=== PATIENT | male | born 1975 | race Caucasian/White ===

== ENCOUNTER 2024-09-24 00:49 | Day surgery (SDC) | payer OTHER, SELFPAY ==
[2024-09-16 09:29] VITALS: BMI 20.6
[2024-09-24 09:33] VITALS: BP 118/82; PULSE 62; RESP 18; TEMP 36; O2SAT 98
[2024-09-24] MEDS: LACTATED RINGERS 1,000 ML 150 ML IV CONT (09:45)
--- NOTE | 2024-09-24 10:05 | P.PNAN_ITS ---
Anes - Initial Pre Proc Eval Procedure: Operation Date: 09/24/24 10:30 Proposed Procedures p Screening Colonoscopy - Juan Gil DO Date/Time: 09/24/24 10:05 Surgeon: Juan Gil DO Pre Op Diagnosis: Screening for malignant neoplasm of colon Patient Data Age: 49 Gender: M Height: 1.73 m Weight: 59.2 kg Last Vital Signs Temp 36.0 C L 09/24/24 09:33 Pulse 62 09/24/24 09:33 Resp 18 09/24/24 09:33 BP 118/82 09/24/24 09:33 Pulse Ox 98 09/24/24 09:33 O2 Del Method Room Air 09/24/24 09:33 Allergies Allergy/AdvReac Type Severity Reaction Status Date / Time Tetanus Vaccines and Toxoid Allergy Unknown Unknown Verified 09/24/24 09:31 Horse Serum Proteins Allergy Unknown REACTION Uncoded 09/24/24 09:31 WHEN YOUNG, UNSURE OF REACTION Home Medications Medication Instructions Recorded Confirmed Type lisinopril 2.5 mg tablet 2.5 mg PO DAILY #90 tabs 05/19/24 09/24/24 Rx omeprazole 40 mg capsule,delayed See Rx Instructions .Route 08/22/24 09/24/24 Rx release .COMPLEX #90 caps ascorbic acid (vitamin C) 500 mg 500 mg PO DAILY 09/16/24 09/24/24 History tablet Patient hx anesthesia problems: none Family hx anesthesia problems: none Results Review: All pre-operative results and documents have been reviewed as part of the pre- operative evaluation. [facility] Past Medical History Medical History Acute non-recurrent sinusitis Hiatal hernia with GERD and esophagitis Pain in right ankle and joints of right foot Primary hypertension Family History Family History Sibling Family history of bipolar disorder Mother Family history of malignant neoplasm of ovary Father Brain cancer Other Diabetes mellitus Social History Social History Smoking status: Never smoker Second hand tobacco smoke exposure: No Alcohol intake: never Substance use: never Substance use type: does not use Lack of Transportation: No Lack of Food: Never True Current Housing: I Have Housing Concerned About Future Housing: No Difficulty Paying Gas/Electric Bills: No Difficulty Paying for Meds: No Currently Unemployed: No Education: Decline to Answer Difficulty w/ Childcare or Family Care: No Living arrangements: with family Gender identity (if verbalized by the patient): Male Spiritual care concerns: No Agree to blood products: Yes Anes - Eval Final PreProcedure Day of Procedure 09/24/24 10:05 Patient weight: normal Heart: regular rate and rhythm Lungs: clear to auscultation Airway: Mallampati scale class 1 Neurological: alert and oriented Last oral intake: >/= 8 hours ASA classification: II Emergent: no Anesthetic plan: proceed Anesthesia type and monitoring: general GIVS and standard monitoring Results Review: All pre-operative results and documents have been reviewed as part of the pre- operative evaluation. Informed Consent: The patient's anesthetic plan and its attendant risks and benefits were discussed with the patient/family/POA. Questions were solicited and answers provided to the satisfaction of the patient/family/POA.
--- NOTE | 2024-09-24 10:29 | P.HP_ITS ---
H&P: HPI History of Present Illness Date/Time: 09/24/24 10:29 Chief Complaint: screening for colorectal cancer Narrative: this is a 49-year-old man who presents for his 1st colonoscopy. He denies any hematochezia or melena. He denies family history colon cancer. Review of Systems Review of Systems: All systems reviewed & are unremarkable except as noted in HPI and below Constitutional: Constitutional: Denies chills, Denies fever(s), Denies headache(s) and Denies weight loss Eyes: Eyes: Denies change in vision ENT: Denies dizziness, Denies headache(s), Denies neck mass and Denies throat swelling Cardiovascular: Cardiovascular: Denies chest pain, Denies lightheadedness and Denies dyspnea Respiratory: Respiratory: Denies cough, Denies dyspnea and Denies wheezing Gastrointestinal: Gastrointestinal: Denies abdominal pain, Denies change in bowel habits, Denies nausea and Denies vomiting Genitourinary: Genitourinary: Denies hematuria and Denies dysuria Musculoskeletal: Musculoskeletal: Reports as per HPI Integumentary/Breasts: Skin/Breast: Reports as per HPI Neurologic: Denies dizziness and Denies headache(s) Allergic/Immunologic: Allergic/Immunologic: Denies throat swelling and Denies wheezing PMFSH Past Medical History Medical History Acute non-recurrent sinusitis Hiatal hernia with GERD and esophagitis Pain in right ankle and joints of right foot Primary hypertension Family History Family History Sibling Family history of bipolar disorder Mother Family history of malignant neoplasm of ovary Father Brain cancer Other Diabetes mellitus Social History Social History Smoking status: Never smoker Second hand tobacco smoke exposure: No Alcohol intake: never Substance use: never Substance use type: does not use Lack of Transportation: No Lack of Food: Never True Current Housing: I Have Housing Concerned About Future Housing: No Difficulty Paying Gas/Electric Bills: No Difficulty Paying for Meds: No Currently Unemployed: No Education: Decline to Answer Difficulty w/ Childcare or Family Care: No Living arrangements: with family Gender identity (if verbalized by the patient): Male Spiritual care concerns: No Agree to blood products: Yes Meds Home Medications and Allergies Home Medications Medication Instructions Recorded Confirmed Type lisinopril 2.5 mg tablet 2.5 mg PO DAILY #90 tabs 05/19/24 09/24/24 Rx omeprazole 40 mg capsule,delayed See Rx Instructions .Route 08/22/24 09/24/24 Rx release .COMPLEX #90 caps ascorbic acid (vitamin C) 500 mg 500 mg PO DAILY 09/16/24 09/24/24 History tablet Allergies Allergy/AdvReac Type Severity Reaction Status Date / Time Tetanus Vaccines and Toxoid Allergy Unknown Unknown Verified 09/24/24 09:31 Horse Serum Proteins Allergy Unknown REACTION Uncoded 09/24/24 09:31 WHEN YOUNG, UNSURE OF REACTION Vital Signs Vital Signs - 24 hr 09/24/24 09:33 Temperature 96.8 F L Pulse Rate 62 Respiratory Rate 18 Blood Pressure 118/82 Pulse Oximetry 98 Oxygen Delivery Room Air Exam Const: General: no acute distress and alert Orientation/consciousness: patient oriented x3 HENMT: Head: normocephalic and atraumatic Ears: hearing grossly normal bilaterally Face/Nose/Sinus: Normal nares present Mouth: Yes Normal oral and palatal mucosa present Eyes: Periorbital: periorbital findings normal Sclera: sclerae normal E OM: EOMs intact bilaterally Neck: Neck: normal visual inspection, no lymphadenopathy and trachea midline Chest: Chest palpation & inspection: normal inspection of the chest Resp: Effort & Inspection: normal respiratory effort Auscultation: clear to auscultation bilaterally Cardio: Jugular venous distension: no JVD Rate: regular rate Rhythm: regular rhythm Heart sounds: S1 normal heart sound present and S2 normal heart sound present Peripheral pulses: Peripheral pulses 2+ throughout GI: Inspection: normal to inspection GI Palp: Yes Soft to palpation, No Tenderness to palpation present (GI), No Guarding due to palpation present (GI) and No Rebound tenderness present Percussion: Yes normal to percussion Auscultation: normal bowel sounds : General: Yes no CVA tenderness Back/Spine/Pelvis: Back: no CVA tenderness Neuro: General: patient oriented x3, no focal motor deficits and CN's II-XI intact bilaterally Cognition (Neuro): normal cognition Speech: normal speech Motor exam (neuro): 5/5 motor strength present throughout Extrem: General: capillary refill normal and no clubbing, cyanosis or edema Assessment and Plan Assessment and plan (1) Screening for colorectal cancer: Code(s): Z12.11 - Encounter for screening for malignant neoplasm of colon; Z12.12 - Encounter for screening for malignant neoplasm of rectum Status: Acute Assessment and Plan: I have recommended colonoscopy. I have discussed the procedure, risks, benefits, and alternatives. Questions were answered. Patient is agreeable to proceed.
[2024-09-24 10:55] VITALS: BP 106/71; PULSE 72; RESP 20; O2SAT 98
[2024-09-24 11:05] VITALS: BP 103/71; PULSE 63; RESP 21; O2SAT 98
[2024-09-24 11:15] VITALS: BP 124/77; PULSE 61; RESP 19; O2SAT 98
== END 2024-09-24 11:30 | disposition home or self-care (01) ==
PROVIDERS: PCP Family Medicine; Visit Provider Surgery
PROC: 0DJD8ZZ Inspection of Lower Intestinal Tract, Via Natural or Artificial Opening Endoscopic (ICD-10-PCS; CPT 45378; principal; 2024-09-24 10:30)
DX: Z12.11 Encounter for screening for malignant neoplasm of colon (principal); I10 Essential (primary) hypertension; K21.9 Gastro-esophageal reflux disease without esophagitis; Z80.41 Family history of malignant neoplasm of ovary; Z80.8 Family history of malignant neoplasm of other organs or systems
CPT/HCPCS: 45378; J2704; J7120